=== PATIENT | female | born 1985 ===

== ENCOUNTER → 2023-10-28 | Outpatient (CLI) | payer OTHER ==
[2023-10-29 12:28] LABS: Candida species (DNA Probe) Positive (NEGATIVE); G. vaginalis (DNA Probe) Positive (NEGATIVE); T. vaginalis (DNA Probe) Negative (NEGATIVE)
== END ==
LOC: LAB 14:38 → LAB SHORT 14:38
PROVIDERS: Physician Assistant Surgical
DX: R14.0 Abdominal distension (gaseous) (principal)
CPT/HCPCS: 87480; 87510; 87660